=== PATIENT | female | born 1950 | race Caucasian/White ===

== ENCOUNTER 2020-12-03 19:20 | Inpatient (IN) ==
[2020-12-03] MEDS ORDERED: Ondansetron 4 MG/2 ML VIAL IVP ONE (19:54)
[2020-12-03] MEDS ORDERED: *HR* FentaNYL (PF) 100 MCG/2 ML VIAL IVP ONE (19:54)
[2020-12-03] MEDS ORDERED: Isovue-370 500 ML BOTTLE IVP ONE (19:55)
[2020-12-03 20:17] LABS: Basophils # 0.1 K/mcL (0.0-0.2); Basophils % 0.5 %; Eosinophils % 0.2 %; Hematocrit 43.5 % (35.3-44.9); Hemoglobin 13.8 g/dL (11.5-15.4); Immature Granulocytes % 0.3 % (0-4); Lymphocytes % 17.8 %; Mean Corpuscular HGB Conc 31.7 g/dL (31.6-35.5); Mean Corpuscular Hemoglobin 26.7 pg (28.0-33.3); Mean Corpuscular Volume 84.1 fL (83.0-100.0); Mean Platelet Volume 8.9 fL (9.4-12.4); Monocytes # 0.7 K/mcL (0.0-1.3); Monocytes % 6.1 %; Neutrophils # 8.6 K/mcL (1.6-8.9); Platelet Count 462 K/mcL (140-400); Red Blood Count 5.17 M/mcL (3.82-4.97); Red Cell Distribution Width 13.1 % (11.5-14.5); Segmented Neutrophils % 75.1 %; White Blood Count 11.4 K/mcL (4.3-11.1)
[2020-12-03 20:58] LABS: Alanine Aminotransferase 267 Units/L (7-52); Albumin 4.5 g/dL (3.5-5.7); Albumin/Globulin Ratio 1.6 (1.1-2.2); Alkaline Phosphatase 99 Units/L (34-104); Aspartate Amino Transferase 366 Units/L (13-39); BUN/Creatinine Ratio 15 (6-26); Bilirubin,Direct 0.6 mg/dL (0.0-0.2); Bilirubin,Indirect 0.7 mg/dL (0.0-1.0); Bilirubin,Total 1.3 mg/dL (0.3-1.0); Blood Urea Nitrogen 15 mg/dL (8-23); Carbon Dioxide 26 mEq/L (23-29); Chloride 102 mEq/L (98-107); Globulin 2.9 g/dL (2.4-3.5); Glucose 132 mg/dL (70-105); Lipase > 1800 Units/L (11-82); Osmolality,Calculated 287 (280-300); Potassium 3.9 mEq/L (3.5-5.1); Sodium 137 mEq/L (136-145); Total Protein 7.4 g/dL (6.4-8.9); Troponin I < 0.03 ng/mL (< 0.04); eGFR For African Americans > 60 (> 60); eGFR For Non-African Americans 55 (> 60)
[2020-12-03] MEDS ORDERED: 0.9 % Sodium Chloride 1,000 ML IVC ONE (21:02)
[2020-12-03] MEDS ORDERED: *HR* HYDROmorphone PF 0.5 MG/0.5 ML SYRINGE IVP ONE (21:55)
[2020-12-03] MEDS ORDERED: *HR* HYDROmorphone (PF) 1 MG/ML SYRINGE IVP ONE (22:00)
[2020-12-03] MEDS ORDERED: 0.9 % Sodium Chloride 1,000 ML IVC SCH (22:15)
[2020-12-03] MEDS ORDERED: Naloxone 0.4 MG/ML INJ IVP PRN (22:21)
[2020-12-03] MEDS ORDERED: Ondansetron 4 MG/2 ML VIAL IVP PRN (22:21)
[2020-12-03] MEDS ORDERED: Ringers Solution, Lactated 1,000 ML IVC ONE ×2 (22:26→22:58)
[2020-12-03] MEDS ORDERED: Ipratropium/Albuterol Neb 3 ML IH PRN (23:00)
[2020-12-03] MEDS: Nicotine 14 MG PATCH.TD24 TD SCH (23:52)
[2020-12-03] MEDS: Piperacillin/Tazobactam 3.375 GM in 0.9 % Sodium Chloride Mini Bag 100 ML IVPB SCH (23:58)
[2020-12-04] MEDS ORDERED: GI Cocktail 40 ML EACH PO ONE (00:09)
[2020-12-04 00:32] LABS: Basophils % 0.4 %; Eosinophils % 0.1 %; Hematocrit 41.2 % (35.3-44.9); Hemoglobin 12.7 g/dL (11.5-15.4); Immature Granulocytes % 0.3 % (0-4); Lymphocytes # 1.1 K/mcL (0.6-4.6); Lymphocytes % 12.3 %; Mean Corpuscular HGB Conc 30.8 g/dL (31.6-35.5); Mean Corpuscular Hemoglobin 26.2 pg (28.0-33.3); Mean Corpuscular Volume 85.1 fL (83.0-100.0); Monocytes # 0.5 K/mcL (0.0-1.3); Monocytes % 5.2 %; Neutrophils # 7.6 K/mcL (1.6-8.9); Platelet Count 409 K/mcL (140-400); Red Blood Count 4.84 M/mcL (3.82-4.97); Red Cell Distribution Width 13.2 % (11.5-14.5); Segmented Neutrophils % 81.7 %; White Blood Count 9.3 K/mcL (4.3-11.1)
[2020-12-04 00:38] LABS: Prothrombin Time 11.6 Seconds (9.4-12.1)
[2020-12-04 00:51] LABS: Chol/HDL Ratio 1.8 (0-4.9)
[2020-12-04 00:52] LABS: Alanine Aminotransferase 215 Units/L (7-52); Albumin/Globulin Ratio 1.6 (1.1-2.2); Alkaline Phosphatase 86 Units/L (34-104); Aspartate Amino Transferase 232 Units/L (13-39); BUN/Creatinine Ratio 15 (6-26); Bilirubin,Total 0.9 mg/dL (0.3-1.0); Blood Urea Nitrogen 13 mg/dL (8-23); Carbon Dioxide 26 mEq/L (23-29); Chloride 105 mEq/L (98-107); Globulin 2.5 g/dL (2.4-3.5); Glucose 129 mg/dL (70-105); Osmolality,Calculated 286 (280-300); Sodium 137 mEq/L (136-145); Total Protein 6.5 g/dL (6.4-8.9); eGFR For African Americans > 60 (> 60); eGFR For Non-African Americans > 60 (> 60)
[2020-12-04] MEDS: *HR* HYDROmorphone (PF) 1 MG/ML SYRINGE IVP PRN (04:05)
[2020-12-04] MEDS: *HR* Enoxaparin 40 MG/0.4 ML SYRINGE SQ SCH (05:40)
[2020-12-04] MEDS: Piperacillin/Tazobactam 3.375 GM in 0.9 % Sodium Chloride Mini Bag 100 ML IVPB SCH (07:37)
[2020-12-04] MEDS: *HR* OxyCODONE Immed Rel 5 MG TABLET PO PRN ×3 (08:16→21:50)
[2020-12-04] MEDS: Nicotine 14 MG PATCH.TD24 TD SCH (15:54)
[2020-12-04] MEDS: Ringers Solution, Lactated 1,000 ML IVC SCH ×2 (15:59→21:51)
[2020-12-05 01:43] LABS: Hematocrit 34.5 % (35.3-44.9); Mean Corpuscular Hemoglobin 26.8 pg (28.0-33.3); Mean Corpuscular Volume 86.3 fL (83.0-100.0); Mean Platelet Volume 9.5 fL (9.4-12.4); Platelet Count 345 K/mcL (140-400); Red Cell Distribution Width 13.3 % (11.5-14.5); White Blood Count 11.6 K/mcL (4.3-11.1)
[2020-12-05 01:44] LABS: Hemoglobin 10.7 g/dL (11.5-15.4)
[2020-12-05 01:58] LABS: Alanine Aminotransferase 110 Units/L (7-52); Albumin 3.4 g/dL (3.5-5.7); Albumin/Globulin Ratio 1.6 (1.1-2.2); Alkaline Phosphatase 70 Units/L (34-104); Aspartate Amino Transferase 62 Units/L (13-39); BUN/Creatinine Ratio 15 (6-26); Bilirubin,Direct 0.2 mg/dL (0.0-0.2); Bilirubin,Indirect 0.4 mg/dL (0.0-1.0); Bilirubin,Total 0.6 mg/dL (0.3-1.0); Blood Urea Nitrogen 10 mg/dL (8-23); Calcium 8.8 mg/dL (8.6-10.3); Carbon Dioxide 24 mEq/L (23-29); Chloride 105 mEq/L (98-107); Globulin 2.1 g/dL (2.4-3.5); Glucose 95 mg/dL (70-105); Osmolality,Calculated 281 (280-300); Potassium 3.7 mEq/L (3.5-5.1); Sodium 136 mEq/L (136-145); Total Protein 5.5 g/dL (6.4-8.9); eGFR For African Americans > 60 (> 60); eGFR For Non-African Americans > 60 (> 60)
[2020-12-05] MEDS: Ringers Solution, Lactated 1,000 ML IVC SCH ×3 (05:35→16:57)
[2020-12-05] MEDS: *HR* Enoxaparin 40 MG/0.4 ML SYRINGE SQ SCH (05:36)
[2020-12-05] MEDS: *HR* OxyCODONE Immed Rel 5 MG TABLET PO PRN (05:40)
[2020-12-05] MEDS ORDERED: Albuterol 2.5 MG/3 ML NEBULIZER IH PRN ×2 (10:00→15:58)
[2020-12-05] MEDS ORDERED: Budesonide/Formoterol 160/4.5 1 PUFF INH IH SCH (10:00)
[2020-12-05 10:11] LABS: Adenovirus Not Detected (Not Detect); Bordetella Pertussis Not Detected (Not Detect); Chlamydophila pneumoniae Not Detected (Not Detect); Coronavirus 229E Not Detected (Not Detect); Coronavirus HKU1 Not Detected (Not Detect); Coronavirus NL63 Not Detected (Not Detect); Coronavirus OC43 Not Detected (Not Detect); Human Metapneumovirus Not Detected (Not Detect); Human Rhinovirus/Enterovirus Not Detected (Not Detect); Influenza A Subtype 2009 H1 Not Detected (Not Detect); Influenza B Not Detected (Not Detect); Mycoplasma pneumoniae Not Detected (Not Detect); Parainfluenza Virus 1 Not Detected (Not Detect); Parainfluenza Virus 2 Not Detected (Not Detect); Parainfluenza Virus 3 Not Detected (Not Detect); Parainfluenza Virus 4 Not Detected (Not Detect); Respiratory Syncytial Virus Not Detected (Not Detect); SARS-CoV-2 Not Detected (Not Detect)
[2020-12-05] MEDS: Nicotine 14 MG PATCH.TD24 TD SCH (10:16)
[2020-12-05] MEDS: *HR* HYDROmorphone (PF) 1 MG/ML SYRINGE IVP PRN (10:16)
[2020-12-05] MEDS ORDERED: Bupivacaine 0.5%-Epi 1:200,000 50 ML VIAL ONE (12:01)
[2020-12-05] MEDS ORDERED: Isovue-300 50ML VIAL ONE (12:02)
[2020-12-05] MEDS ORDERED: Ringers Solution, Lactated 1,000 ML IVC SCH (12:41)
[2020-12-05] MEDS ORDERED: *HR* FentaNYL (PF) 100 MCG/2 ML VIAL ONE ×2 (12:46→14:27)
[2020-12-05] MEDS ORDERED: *HR* Propofol 200 MG/20 ML VIAL IVP ONE (12:46)
[2020-12-05] MEDS ORDERED: Dexamethasone 4 MG/ML VIAL ONE (12:49)
[2020-12-05] MEDS ORDERED: Ondansetron 4 MG/2 ML VIAL ONE (12:49)
[2020-12-05] MEDS ORDERED: *HR* Succinylcholine 200 MG/10 ML VIAL IVP ONE (12:49)
[2020-12-05] MEDS ORDERED: Lidocaine -MPF 2% 2 ML VIAL ONE (12:49)
[2020-12-05] MEDS ORDERED: *HR* Rocuronium Bromide 50 MG/5 ML VIAL ONE (12:49)
[2020-12-05] MEDS ORDERED: Lidocaine HCL 4 ML Topical Solution (Laryng-O-Jet Kit Sterile Pak) TP ONE (12:50)
[2020-12-05] MEDS ORDERED: Albuterol 2.5 MG/3 ML NEBULIZER IH ONE (13:14)
[2020-12-05] MEDS ORDERED: Famotidine 20 MG/2 ML VIAL ONE (13:18)
[2020-12-05] MEDS ORDERED: *HR* HYDROmorphone PF 0.5 MG/0.5 ML SYRINGE IVP PRN ×2 (13:26→15:58)
[2020-12-05] MEDS ORDERED: Ondansetron 4 MG/2 ML VIAL IVP PRN ×2 (13:26→15:58)
[2020-12-05] MEDS ORDERED: CeFAZolin Syr 2,000MG/20 ML 2,000 MG/20 ML SYRINGE IVPB ONE (14:30)
[2020-12-05] MEDS ORDERED: Ipratropium/Albuterol Neb 3 ML IH PRN (15:58)
[2020-12-05] MEDS ORDERED: *HR* OxyCODONE Immed Rel 5 MG TABLET PO PRN ×2 (15:58)
[2020-12-05] MEDS ORDERED: Naloxone 0.4 MG/ML INJ IVP PRN (15:58)
[2020-12-05] MEDS ORDERED: *HR* HYDROmorphone (PF) 1 MG/ML SYRINGE IVP PRN (15:58)
[2020-12-05] MEDS: Budesonide/Formoterol 160/4.5 1 PUFF INH IH SCH (20:19)
[2020-12-06] MEDS: Ringers Solution, Lactated 1,000 ML IVC SCH ×2 (01:21→03:36)
[2020-12-06 05:10] LABS: Hematocrit 30.6 % (35.3-44.9); Hemoglobin 9.6 g/dL (11.5-15.4); Mean Corpuscular HGB Conc 31.4 g/dL (31.6-35.5); Mean Corpuscular Volume 86.2 fL (83.0-100.0); Mean Platelet Volume 9.6 fL (9.4-12.4); Platelet Count 331 K/mcL (140-400); Red Blood Count 3.55 M/mcL (3.82-4.97); Red Cell Distribution Width 13.1 % (11.5-14.5); White Blood Count 10.5 K/mcL (4.3-11.1)
[2020-12-06 05:32] LABS: Alanine Aminotransferase 65 Units/L (7-52); Albumin 3.3 g/dL (3.5-5.7); Albumin/Globulin Ratio 1.3 (1.1-2.2); Alkaline Phosphatase 63 Units/L (34-104); Aspartate Amino Transferase 27 Units/L (13-39); BUN/Creatinine Ratio 13 (6-26); Bilirubin,Direct 0.1 mg/dL (0.0-0.2); Bilirubin,Indirect 0.3 mg/dL (0.0-1.0); Bilirubin,Total 0.4 mg/dL (0.3-1.0); Blood Urea Nitrogen 8 mg/dL (8-23); Calcium 9.1 mg/dL (8.6-10.3); Carbon Dioxide 23 mEq/L (23-29); Chloride 103 mEq/L (98-107); Globulin 2.5 g/dL (2.4-3.5); Glucose 126 mg/dL (70-105); Magnesium 1.6 mg/dL (1.6-2.6); Osmolality,Calculated 278 (280-300); Sodium 134 mEq/L (136-145); Total Protein 5.8 g/dL (6.4-8.9); eGFR For African Americans > 60 (> 60); eGFR For Non-African Americans > 60 (> 60)
[2020-12-06] MEDS ORDERED: *HR* Enoxaparin 40 MG/0.4 ML SYRINGE SQ SCH (06:00)
[2020-12-06] MEDS: Budesonide/Formoterol 160/4.5 1 PUFF INH IH SCH (08:16)
[2020-12-06 08:56] LABS: Amylase 64 Units/L (29-103); Lipase 45 Units/L (11-82)
[2020-12-06] MEDS ORDERED: Nicotine 14 MG PATCH.TD24 TD SCH (09:00)
[2020-12-06 09:56] VITALS: BP 126/69
== END 2020-12-06 14:45 | disposition home or self-care (01) | DRG 263 ==
LOC: EMEROOARM 19:20 → 3BNU 19:20 → SUATTDRO 21:28 → 3BNU 23:31
PROVIDERS: ADMIT Internal Medicine; ATTEND Internal Medicine